=== PATIENT | male | born 1965 | race African-American/Black ===

== ENCOUNTER → 2019-08-03 | Outpatient (CLI) | payer OTHER ==
[~2019-08-03] MED LIST: GADOTERATE 7.5 MMOL/15ML VIAL. IVP ONE
--- NOTE | 2019-08-03 11:54 | RAD ---
EXAM: Brain and internal auditory canal MRI with and without contrast. HISTORY: Vestibular schwannoma. Gamma knife. TECHNIQUE: Multiplanar, multisequence magnetic resonance imaging of the brain and internal auditory canal was performed prior to and following the administration of intravenous contrast. COMPARISON: None. FINDINGS: There is no restricted diffusion to suggest acute or subacute infarction. There is no mass effect or midline shift. There is no hydrocephalus. There are a few tiny scattered foci of signal change within the cerebral white matter, most commonly due to chronic small vessel disease in patients of this age. There is enhancing lesion within the left internal auditory canal measuring 6 mm transversely by 4 mm craniocaudally by 5 mm anteroposteriorly. This abuts or nearly abuts the cochlea. There is no significant widening of the internal auditory canal or extension of the lesion into the porus acusticus or cerebellopontine angle. No additional enhancing lesion is seen. The orbits are unremarkable. There is paranasal sinus mucosal thickening with multiple tiny maxillary sinus mucous retention cysts. There is minimal fluid within the ethmoid air cells. There are normal flow voids within the cerebral vessels. No calvarial lesion is seen. IMPRESSION: 1. 6 x 5 x 4 mm enhancing lesion within the left internal auditory canal abutting or nearly abutting the cochlea, consistent with an intracanalicular vestibular schwannoma. There is no prior study to assess for interval change in this patient with a reported history of gamma knife surgery. 2. Few tiny foci of signal change within the cerebral white matter, most commonly due to chronic small vessel disease in patients of this age. Electronically signed by: Eliana Pina MD (08/03/2019 11:51 AM) [id number]
== END ==
LOC: MRI 10:08
PROVIDERS: ATTEND Family Medicine
DX: D33.3 Benign neoplasm of cranial nerves (principal); I73.9 Peripheral vascular disease, unspecified
CPT/HCPCS: 70553; A9575